=== PATIENT | male | born 1970 | race Caucasian/White ===

== ENCOUNTER 2017-11-07 13:32 | Inpatient (IN) | payer OTHER ==
[~2017-11-07] VITALS: Ht 172.7 cm; Wt 127.9 kg
[~2017-11-07 13:32] MED LIST: BENAZEPRIL HYDR20 M1 PO; COUMADIN5 MG PO; COUMADIN7.5 MG PO; LOTENSIN10 MG PO; MUCINEX600 MG PO; NEU300 PO; PRI20 PO; XARELTO15 M1 PO
[2017-11-07 13:38] VITALS: Ht 172.7 cm; Wt 127.9 kg
[2017-11-07 14:09] LABS: BASOPHIL % 0.3 % (0-2); PLATELET COUNT 263 x10^3mcL (130-400); RED CELL DISTRIBUTION WIDTH 14.1 % (11.5-14.5)
[2017-11-07 14:22] LABS: CALCIUM 8.1 mg/dL (8.5-10.1); CARBON DIOXIDE 26.7 mmol/L (21-32); CHLORIDE SERUM 100 mmol/L (98-107); CREATININE SERUM 0.9 mg/dL (0.7-1.3); GFR1 > 60 mL/min; GLUCOSE SERUM 368 mg/dL (74-106); POTASSIUM SERUM 3.6 mmol/L (3.5-5.1); SODIUM SERUM 136 mmol/L (136-145)
[2017-11-07 14:27] LABS: ALBUMIN 3.6 g/dL (3.4-5.0); ALKALINE PHOSPHATASE 115 U/L (46-116); ALT/SGPT 18 U/L (16-63); AST/SGOT 8 U/L (15-37); BILIRUBIN TOTAL 0.6 mg/dL (0.20-1.00); TOTAL PROTEIN, SERUM 7.2 g/dL (6.4-8.2)
[2017-11-07] MEDS ORDERED: ELIQUIS5 MG PO (16:19)
[2017-11-07] MEDS ORDERED: PRA40 (16:20)
[2017-11-07] MEDS ORDERED: LANTUS SOLOS100 U/M1 (16:20)
[2017-11-07 17:37] VITALS: BP 142/91
[2017-11-07 20:58] VITALS: BP 133/98
[2017-11-08 05:12] VITALS: BP 137/90
[2017-11-08 07:19] LABS: BASOPHIL % 0.5 % (0-2); PLATELET COUNT 265 x10^3mcL (130-400); RED CELL DISTRIBUTION WIDTH 14.1 % (11.5-14.5)
[2017-11-08 07:22] LABS: CARBON DIOXIDE 27.9 mmol/L (21-32); CHLORIDE SERUM 102 mmol/L (98-107); CREATININE SERUM 0.8 mg/dL (0.7-1.3); GFR1 > 60 mL/min; GLUCOSE SERUM 217 mg/dL (74-106); POTASSIUM SERUM 3.3 mmol/L (3.5-5.1); SODIUM SERUM 138 mmol/L (136-145)
[2017-11-08 09:10] VITALS: BP 146/100
[2017-11-08 13:08] VITALS: BP 135/87
[2017-11-08 15:44] VITALS: BP 114/73
[2017-11-08] MEDS ORDERED: DILTIAZEM HCL120 M2 PO (16:03)
[2017-11-08] MEDS ORDERED: TOPROL XL25 MG PO (16:03)
== END 2017-11-08 16:50 | disposition home or self-care (01) | DRG 309 ==
LOC: ED 13:32 → DU 16:05
PROVIDERS: Emergency Medicine; Internal Medicine Pulmonary Disease
DX: I48.91 Unspecified atrial fibrillation (principal); Z68.41 Body mass index [BMI] 40.0-44.9, adult; I82.411 Acute embolism and thrombosis of right femoral vein; I82.431 Acute embolism and thrombosis of right popliteal vein; E11.65 Type 2 diabetes mellitus with hyperglycemia; I10 Essential (primary) hypertension; E66.9 Obesity, unspecified; G89.29 Other chronic pain; M54.5 Low back pain; Z98.1 Arthrodesis status; Z86.711 Personal history of pulmonary embolism; Z79.01 Long term (current) use of anticoagulants; Z86.718 Personal history of other venous thrombosis and embolism
CPT/HCPCS: 83880; J0780; J1815; J3010; J3490; Q0092

== ENCOUNTER 2018-09-10 18:02 | Emergency (ER) | payer OTHER ==
[~2018-09-10] VITALS: Ht 172.7 cm; Wt 122.0 kg
[~2018-09-10 18:02] MED LIST changes: +DILTIAZEM HCL120 M2 PO; +ELIQUIS5 MG PO; +LANTUS SOLOS100 U/M1; +PRA40; +TOPROL XL25 MG PO
[2018-09-10 18:08] VITALS: Ht 172.7 cm; Wt 122.0 kg
[2018-09-10 19:28] LABS: BASOPHIL % 0.4 % (0-2); PLATELET COUNT 354 x10^3mcL (130-400); RED CELL DISTRIBUTION WIDTH 15.4 % (11.5-14.5)
[2018-09-10 19:33] LABS: CALCIUM 8.9 mg/dL (8.5-10.1); CHLORIDE SERUM 106 mmol/L (98-107); CREATININE SERUM 0.8 mg/dL (0.7-1.3); GFR1 > 60 mL/min; GLUCOSE SERUM 202 mg/dL (74-106); POTASSIUM SERUM 3.6 mmol/L (3.5-5.1); SODIUM SERUM 142 mmol/L (136-145)
[2018-09-10 19:37] LABS: ALKALINE PHOSPHATASE 113 U/L (46-116); ALT/SGPT 19 U/L (16-63); AST/SGOT 5 U/L (15-37); BILIRUBIN TOTAL 0.24 mg/dL (0.20-1.00); LIPASE 161 IU/L (73-393); TOTAL PROTEIN, SERUM 7.4 g/dL (6.4-8.2)
[2018-09-10 19:39] LABS: ALBUMIN 3.3 g/dL (3.4-5.0)
[2018-09-10 20:00] LABS: microscopic required? NO
[2018-09-10 20:11] LABS: UA SPECIFIC GRAVITY 1.015 (1.005-1.035); urine erythrocyte NEGATIVE (NEGATIVE)
[2018-09-10 21:48] VITALS: BP 128/85
== END 2018-09-10 21:48 | disposition home or self-care (01) ==
LOC: ED 18:02
PROVIDERS: Emergency Medicine
DX: R10.31 Right lower quadrant pain (principal); I10 Essential (primary) hypertension; E11.9 Type 2 diabetes mellitus without complications; Z98.890 Other specified postprocedural states
CPT/HCPCS: J2270; J2405; J7030; Q0092; Q9967

== ENCOUNTER 2019-06-06 14:15 | Observation (INO) | payer OTHER ==
[~2019-06-06] VITALS: Ht 172.7 cm; Wt 128.5 kg
[2019-06-06 14:57] VITALS: Ht 172.7 cm; Wt 128.5 kg
[2019-06-06 15:13] LABS: BASOPHIL % 0.9 % (0-2); PLATELET COUNT 305 x10^3mcL (130-400); RED CELL DISTRIBUTION WIDTH 13.9 % (11.5-14.5)
[2019-06-06 15:24] LABS: CALCIUM 8.8 mg/dL (8.5-10.1); CARBON DIOXIDE 27.9 mmol/L (21-32); CHLORIDE SERUM 102 mmol/L (98-107); GFR1 > 60 mL/min; GLUCOSE SERUM 251 mg/dL (74-106); POTASSIUM SERUM 3.9 mmol/L (3.5-5.1); SODIUM SERUM 139 mmol/L (136-145)
[2019-06-06 15:28] LABS: ALBUMIN 3.5 g/dL (3.4-5.0); ALKALINE PHOSPHATASE 108 U/L (46-116); ALT/SGPT 26 U/L (16-63); AST/SGOT 13 U/L (15-37); BILIRUBIN TOTAL 0.5 mg/dL (0.20-1.00); TOTAL PROTEIN, SERUM 7.7 g/dL (6.4-8.2)
[2019-06-06 17:37] VITALS: BP 100/41
[2019-06-06] MEDS ORDERED: KEFLEX500 M1 PO (18:20)
[2019-06-06 20:44] LABS: UA SPECIFIC GRAVITY 1.025 (1.005-1.035); microscopic required? YES; urine erythrocyte 3+ (NEGATIVE)
[2019-06-06 21:39] VITALS: BP 120/71
[2019-06-07 05:35] VITALS: BP 116/72
[2019-06-07 06:30] LABS: BASOPHIL % 0.6 % (0-2); PLATELET COUNT 285 x10^3mcL (130-400); RED CELL DISTRIBUTION WIDTH 13.7 % (11.5-14.5)
[2019-06-07 06:53] LABS: ALKALINE PHOSPHATASE 96 U/L (46-116); ALT/SGPT 23 U/L (16-63); AST/SGOT 10 U/L (15-37); BILIRUBIN TOTAL 0.5 mg/dL (0.20-1.00); CALCIUM 8.3 mg/dL (8.5-10.1); CARBON DIOXIDE 28.6 mmol/L (21-32); CHLORIDE SERUM 103 mmol/L (98-107); CREATININE SERUM 0.8 mg/dL (0.7-1.3); GFR1 > 60 mL/min; GLUCOSE SERUM 173 mg/dL (74-106); MAGNESIUM 1.7 mg/dL (1.8-2.4); POTASSIUM SERUM 3.4 mmol/L (3.5-5.1); SODIUM SERUM 139 mmol/L (136-145); TOTAL PROTEIN, SERUM 6.9 g/dL (6.4-8.2)
[2019-06-07 08:17] VITALS: BP 95/62
[2019-06-07] MEDS ORDERED: BRILINTA90 M1 PO (10:01)
[2019-06-07 11:22] VITALS: BP 108/57
[2019-06-07 11:47] VITALS: BP 95/52
== END 2019-06-07 12:18 | disposition home or self-care (01) ==
LOC: ED 14:15 → DU 16:21
PROVIDERS: ADMIT Internal Medicine Pulmonary Disease
DX: R07.89 Other chest pain (principal); I25.10 Atherosclerotic heart disease of native coronary artery without angina pectoris; I10 Essential (primary) hypertension
CPT/HCPCS: 82962; G0378; J3010; Q0092

== ENCOUNTER 2019-07-10 19:37 | Emergency (ER) | payer OTHER ==
[~2019-07-10] VITALS: Ht 175.3 cm; Wt 134.3 kg
[~2019-07-10 19:37] MED LIST changes: +BRILINTA90 M1 PO; +KEFLEX500 M1 PO
[2019-07-10 20:48] LABS: BASOPHIL % 0.4 % (0-2); PLATELET COUNT 259 x10^3mcL (130-400); RED CELL DISTRIBUTION WIDTH 14.2 % (11.5-14.5)
[2019-07-10 20:59] LABS: CALCIUM 8.5 mg/dL (8.5-10.1); CARBON DIOXIDE 28.5 mmol/L (21-32); CHLORIDE SERUM 102 mmol/L (98-107); CREATININE SERUM 0.9 mg/dL (0.7-1.3); GFR1 > 60 mL/min; GLUCOSE SERUM 269 mg/dL (74-106); POTASSIUM SERUM 3.7 mmol/L (3.5-5.1); SODIUM SERUM 138 mmol/L (136-145)
[2019-07-10 21:04] LABS: ALBUMIN 3.6 g/dL (3.4-5.0); ALKALINE PHOSPHATASE 98 U/L (46-116); ALT/SGPT 29 U/L (16-63); AST/SGOT 10 U/L (15-37); BILIRUBIN TOTAL 0.4 mg/dL (0.20-1.00); LIPASE 135 IU/L (73-393); TOTAL PROTEIN, SERUM 7.2 g/dL (6.4-8.2)
[2019-07-11 01:11] VITALS: BP 130/85
== END 2019-07-11 01:05 | disposition home or self-care (01) ==
LOC: ED 19:37
PROVIDERS: Emergency Medicine
DX: R10.9 Unspecified abdominal pain (principal); I10 Essential (primary) hypertension; E11.9 Type 2 diabetes mellitus without complications
CPT/HCPCS: J2270; J2405; J7030; Q9967

== ENCOUNTER 2019-11-06 17:45 | Observation (INO) | payer OTHER, SELFPAY ==
[~2019-11-06] VITALS: Ht 172.7 cm; Wt 127.0 kg
[2019-11-06 17:45] VITALS: Ht 172.7 cm; Wt 127.0 kg
--- NOTE | 2019-11-06 17:45 | NUR ---
CALLED TO TENT TO SCREEN PT. PT WEARING MASK. PT STATES COVID + THURSDAY @ [facility] [place]. PT C/O CP X 2 HOURS. STATES "CAN'T REALLY BREATHE." STATES "LEGS WEAK." PT C/O TACTILE FEVER, CHILLS, CURRENTLY SWEATING, BODY ACHES, [place], FATIGUE, "LITTLE BIT" RUNNY NOSE," "LITTLE BIT" SORE THROAT, COUGH, SOB, LOSS OF TASTE, "LITTLE BIT" LOSS OF SMELL, ABD PAIN, NOT EATING D/T LOSS OF TASTE, NAUSEA, & DIARRHEA. RECENTLY EXPOSED TO [id number] WHO SINCE TESTED + FOR COVID. DENIES VOMITING. DENIES RECENT TRAVEL. SEE TRIAGE FOR VITALS. ONLY AVAILABLE ROOM BEING CLEANED. VALERIE CISNEROS NOTIFIED TO DO EKG WHILE PT WAITING OUTSIDE FOR ROOM. I RESPONDED WEARING FULL ISOLATION GEAR (MINUS GOWN, OUTSIDE)
--- NOTE | 2019-11-06 18:43 | NUR ---
PT BIB SELF C/C CP STS SUDDEN ONSET X 2 HRS AGO STS WAS TOLD + COVID X 4 DAYS AGO STS TODAY FEVER GENERALIZE WEAKNESS SOB N/D PLACED ON MONITOR AWAITING FOR DR KONRAD GRISSOM
[2019-11-06 19:20] LABS: microscopic required? NO
[2019-11-06 19:24] LABS: BASOPHIL % 0.3 % (0-2); PLATELET COUNT 252 x10^3mcL (130-400)
--- NOTE | 2019-11-06 19:31 | NUR ---
PLEASE ENTER FULL NAMES OF RETAIL SUPPORT SPECIALIST/RN Patient data collected by (RETAIL SUPPORT SPECIALIST):AUDRA RETAIL SUPPORT SPECIALIST Assessment reviewed and completed by (RN): EDE MACHADO
[2019-11-06 19:43] LABS: CALCIUM 8.5 mg/dL (8.5-10.1); CARBON DIOXIDE 21.9 mmol/L (21-32); CHLORIDE SERUM 97 mmol/L (98-107); GFR1 > 60 mL/min; GLUCOSE SERUM 392 mg/dL (74-106); SODIUM SERUM 133 mmol/L (136-145)
[2019-11-06 19:48] LABS: ALBUMIN 3.4 g/dL (3.4-5.0); ALKALINE PHOSPHATASE 93 U/L (46-116); ALT/SGPT 38 U/L (16-63); AST/SGOT 17 U/L (15-37); BILIRUBIN TOTAL 0.65 mg/dL (0.20-1.00); C REACTIVE PROTEIN 0.9 mg/dL (<=0.9); LACTIC DEHYDROGENASE (LDH) 161 U/L (100-190); TOTAL PROTEIN, SERUM 7.2 g/dL (6.4-8.2)
[2019-11-06 19:59] LABS: UA SPECIFIC GRAVITY <=1.005 (1.005-1.035); urine erythrocyte NEGATIVE (NEGATIVE)
--- NOTE | 2019-11-06 20:00 | NUR ---
Pt resting in bed. A&Ox4, resp even and unlabored. Skin w/d, color wnl.
--- NOTE | 2019-11-06 22:00 | NUR ---
Resting in bed. No changes.
--- NOTE | 2019-11-06 23:49 | NUR ---
PT REPORTING CHEST PAIN AND REQUESTING PAIN MEDICATION. PT VITALS ARE STABLE. NO ACUTE DISTRESS NOTED.
--- NOTE | 2019-11-07 02:00 | NUR ---
Sleeping. No changes.
--- NOTE | 2019-11-07 04:00 | NUR ---
Sleeping. No changes.
--- NOTE | 2019-11-07 06:00 | NUR ---
Sleepig. No changes.
[2019-11-07] MEDS ORDERED: METOPROLOL TART50 MG PO (07:31)
[2019-11-07] MEDS ORDERED: DEXAMETHASONE4 MG PO (07:32)
[2019-11-07] MEDS ORDERED: ELIQUIS5 MG PO (07:34)
[2019-11-07] MEDS ORDERED: LOTENSIN20 MG PO (07:34)
[2019-11-07] MEDS ORDERED: AZITHROMYCIN500 M3 PO (07:35)
[2019-11-07] MEDS ORDERED: BRILINTA90 M1 PO (07:36)
[2019-11-07] MEDS ORDERED: LANTI SQ (07:37)
--- NOTE | 2019-11-07 07:38 | NUR ---
RECIEVED PT FROM NIGHT NURSE. PT IS LAYING DOWN IN BED WITH HOB UP RESTING. PT LOOKS TO BE IN NO ACUTE DISTRESS AT THIS TIME. RESPIRATIONS EVEN AND UNLABORED ON ROOM AIR LUNG SOUNDS CLEAR BILATERALLY. PT IS AOX4 AND STATES CAME IN BECAUSE "I HAVE COVID AND I WAS TOLD AT [facility] [place] THAT IF I FEEL WORSE TO COME TO THE ED, SO THATS WHAT I DID. I FELT HOT AND WAS HAVING BACK BODY ACHES AND SOB BUT I AM FEELING MUCH BETTER AT THIS TIME. PT IS AMBULATORY WITHOUT ASSISTANCE. CALL LIGHT WITHIN REACH. WILL CONTINUE TO MONITOR.
--- NOTE | 2019-11-07 08:24 | NUR ---
CALLED AND GAVE REPORT TO ILIR
[2019-11-07 13:57] VITALS: BP 116/78
--- NOTE | 2019-11-07 14:05 | NUR ---
PT TROP RESULTS CAME BACK 8.330. DR. SUAREZ MADE AWARE.
[2019-11-07 14:29] VITALS: BP 102/70
[2019-11-07 17:11] VITALS: BP 115/82
--- NOTE | 2019-11-07 18:39 | NUR ---
PT IN BED RESTING. NO ACUTE DISTRESS. PT DENIES CHEST PAIN OR PRESSURE. HEPARIN DRIP STARTED AT 1728. RR EVEN AND UNLABORED ON RA. ALL NEEDS MEET AT THIS TIME. CALL LIGHT WITHIN REACH. BED LOCKED IN LOWEST POSITION. WILL ENDORSE CARE TO NIGHT RN.
--- NOTE | 2019-11-07 19:10 | NUR ---
CARE ASSUMED FROM OUTGOING RN. PT CURRENTLY ON RA, ON TELE# 28 READING AFIB 110 WITH BBB, PVC. CURRENTLY ON HEPARIN GTT, AT 10ML/HR, PTT DRAW SCHEDULED AT 2330. NO C/O SOB OR PAIN AT THIS TIME. CONTACT AND DROPLET ISOLATION IN PLACE. WILL CONTINUE TO MONITOR.
--- NOTE | 2019-11-07 19:28 | NUR ---
PT IN BED RESTING. NO ACUTE DISTRESS. NO CO PAIN. RR EVEN AND UNLABORED ON RA. ENDORSED CARE TO NIGHT RN.
[2019-11-07 20:54] VITALS: BP 114/62
--- NOTE | 2019-11-08 00:08 | NUR ---
PTT FOR HEPARIN GTT DRAWN, AWAITING RESULTS. WILL CONTINUE TO MONITOR.
[2019-11-08 00:27] VITALS: BP 114/62
--- NOTE | 2019-11-08 02:02 | NUR ---
PTT: 29.6, PER HEPARIN PROTOCOL, HEPARIN 5500 UNIT BOLUS GIVEN VIA IVP, RATE OF HEPARIN GTT INCREASED BY 400 UNITS PER HOUR (4ML/HR). NEW RATE SET AT 1400 UNIT PER HOUR (14ML/HR). ALL MEDICATION AND RATE CHANGED VERIFIED WITH SHERINE FIGUEROA. PTT ORDER IN 6 HOURS. PT TOLERATED WELL. RESTING IN BED ON RA. NO ACUTE DISTRESS NOTED. WILL CONTINUE TO MONITOR.
[2019-11-08 05:13] VITALS: BP 104/54
--- NOTE | 2019-11-08 06:04 | NUR ---
PT RESTED COMFORTABLY IN INTERVALS THROUGHOUT THE SHIFT. ALL NEEDS TENDED TO AND MET. ALL SCHEDULED MEDICATIONS GIVEN. EVEN AND UNLABORED RESPIRATIONS ON RA. ON TELE # 28 READING AFIB 103 BPM WITH BBB, PVC. ON HEPARIN GTT AT 14ML/HR, PTT DRAW AT 0800. CONTACT AND DROPLET ISOLATION IN PLACE. BED IN LOWEST POSITION. SIDE RAILS UPX2. CALL LIGHT WITHIN REACH. WILL ENDORSE TO ONCOMING SHIFT.
[2019-11-08 07:17] LABS: BASOPHIL % 0.3 % (0-2); PLATELET COUNT 243 x10^3mcL (130-400)
[2019-11-08 07:27] LABS: RED CELL DISTRIBUTION WIDTH 15.2 % (11.5-14.5)
[2019-11-08 07:31] LABS: CALCIUM 8.1 mg/dL (8.5-10.1); CHLORIDE SERUM 101 mmol/L (98-107); CREATININE SERUM 0.8 mg/dL (0.7-1.3); GFR1 > 60 mL/min; GLUCOSE SERUM 129 mg/dL (74-106); POTASSIUM SERUM 3.1 mmol/L (3.5-5.1); SODIUM SERUM 138 mmol/L (136-145)
--- NOTE | 2019-11-08 08:30 | NUR ---
SEEN IN BED AAOX4. DENIES CHEST PAIN. NO SOB NOTED, BREATHING E/U ON ROOM AIR. AFIB YM=715 ON TELE MONITOR. LUNG SOUND CTA BILATERALLY. HEPARIN DRIPS ONGOING AT 1400 UNITS/HR, WILL BE MONITORED PER HEPARIN PROTOCAL. IV SITE TO LFA INTACT AND PATENT. PLAN OF CARE DISCUSSED, CALL LIGHT PLACED WITHIN EASY REACH, SIDERAILS UP X2. ON CONTACT/DROPLET ISOLATION FOR POSITIVE COVID-19.
[2019-11-08 09:09] VITALS: BP 92/63
--- NOTE | 2019-11-08 11:22 | NUR ---
PTT =42.6, REBOLUS HEPARIN 3700 UNITS IVP AND INCREASED RATE TO 1600 UNITS/HR PER HEPARIN DRIPS PROTOCAL.
[2019-11-08 12:29] VITALS: BP 90/53
--- NOTE | 2019-11-08 13:00 | NUR ---
SEEN BY DOCTOR HOGAN. PATIENT MADE AWARE OF CURRENT CONDITION AND PLAN OF CARE.
[2019-11-08 16:06] VITALS: BP 108/66
--- NOTE | 2019-11-08 16:46 | NUR ---
NO ANY DISTRESS, DENIES CHEST PAIN, VSS, NSR WITH BBB AND OCCATIONAL PVC'S ON TELE# 28. HEPARIN DRIPS ONGOING AT 1600 UNITS/HR.
--- NOTE | 2019-11-08 18:47 | NUR ---
DENIES CHEST PAIN, BREATHING E/U ON ROOM AIR, VSS, BRP, HEPARIN DRIPS AT 1600 UNITS/HR TO LFA INFUSING WELL, PTT AT 18:30PM PENDING RESULT, WILL ENDORSE TO INCOMING SHIFT.
[2019-11-08 20:37] VITALS: BP 117/85
--- NOTE | 2019-11-08 22:37 | NUR ---
NN: RECEIVED CALL FROM LAB, PTT 85.9, HELD HEPAIN GTT FOR AN HOUR AT 2014 AND RESTARTED DRIP AT 2114 AT 1400 UNITS PER PROTOCOL, SAFETY MAINTAINED.
[2019-11-09 04:32] LABS: CALCIUM 8.5 mg/dL (8.5-10.1); CARBON DIOXIDE 25.7 mmol/L (21-32); CHLORIDE SERUM 101 mmol/L (98-107); CREATININE SERUM 0.8 mg/dL (0.7-1.3); GFR1 > 60 mL/min; GLUCOSE SERUM 187 mg/dL (74-106); POTASSIUM SERUM 3.7 mmol/L (3.5-5.1); SODIUM SERUM 136 mmol/L (136-145)
[2019-11-09 04:43] LABS: BASOPHIL % 0.2 % (0-2); PLATELET COUNT 256 x10^3mcL (130-400)
[2019-11-09 04:45] VITALS: BP 125/83
[2019-11-09 04:47] LABS: RED CELL DISTRIBUTION WIDTH 14.8 % (11.5-14.5)
--- NOTE | 2019-11-09 07:30 | NUR ---
PATIENT IS A&OX4, FOLLOWS COMMANDS AND COOPERATES WELL. TELE #28, NSR W/ BBB, DENIES CHEST PAIN. PERIPHERAL PULSES PALPABLE W/ NO SIGNS OF EDEMA. LUNG SOUNDS CTA BILATERALLY, ON RA, O2 SAT 96%, DENIES SOB. NORMOACTIVE BSX4, ABD SOFT AND ROUND, DENIES ABD PAIN. VOIDS USING URINAL. MILD GENERALIZED WEAKNES BUT ABLE TO AMBULATE BY HIMSELF. SCABS NOTED ON BILATERAL KNEES, SCAR TO MID ABD. DENIES PAIN OR DISCOMFORT AT THIS TIME. IV SITE IS CDI. PATIENT REMAINS ON HEPARIN DRIP. WILL CONTINUE TO MONITOR PATIENT.
[2019-11-09 08:45] VITALS: BP 99/69
[2019-11-09] MEDS ORDERED: BRILINTA90 M1 PO (10:57)
[2019-11-09] MEDS ORDERED: ISOSORBIDE30 M1 PO (10:58)
[2019-11-09] MEDS ORDERED: ZINC SULFATE220 MG PO (10:58)
[2019-11-09] MEDS ORDERED: VITC PO (10:59)
[2019-11-09 11:25] VITALS: BP 109/57
--- NOTE | 2019-11-09 11:49 | NUR ---
PATIENT RECEIVED DISCHARGE INSTRUCTIONS. ALL QUESTIONS AND CONCERNS HAVE BEEN ADDRESSED. PATIENT STATES HE IS READY TO GO HOME. IV HAS BEEN DC AND CATHETER INTACT. TELE HAS BEEN RETURNED TO STATION. PATIENT AWAITING FOR TO PICK HIM UP. WILL CONTINUE TO MONITOR PATIENT.
== END 2019-11-09 12:35 | disposition home or self-care (01) ==
LOC: ED 17:45 → DU 20:58
PROVIDERS: Emergency Medicine; ADMIT Internal Medicine; ATTEND Internal Medicine
DX: U07.1 COVID-19 (principal); R50.9 Fever, unspecified; R51 Headache; R07.89 Other chest pain; I21.4 Non-ST elevation (NSTEMI) myocardial infarction; I48.91 Unspecified atrial fibrillation; I10 Essential (primary) hypertension; R19.7 Diarrhea, unspecified; I25.10 Atherosclerotic heart disease of native coronary artery without angina pectoris; Z86.718 Personal history of other venous thrombosis and embolism; I48.0 Paroxysmal atrial fibrillation; Z79.01 Long term (current) use of anticoagulants
CPT/HCPCS: 36600; 82962; 83880; 87804; G0378; J1644; J1815; J2405; J3010; J8540; Q0092